=== PATIENT | male | born 1950 | race Caucasian/White ===

== ENCOUNTER → 2021-07-14 00:01 | Outpatient (BNVA) | payer MEDICARE, OTHER, SELFPAY | PROVIDERS: PCP Registered Nurse; Visit Provider Podiatrist Foot & Ankle Surgery | DX: T14.8XXA Other injury of unspecified body region, initial encounter (principal); X58.XXXA Exposure to other specified factors, initial encounter | CPT/HCPCS: 87070; 87075; 87205 ==

== ENCOUNTER 2021-08-08 06:55 | Emergency (ER) | payer MEDICARE, OTHER, SELFPAY ==
[2021-08-08 07:02] VITALS: BP 171/92; PULSE 67; RESP 15; TEMP 36.3; O2SAT 96; BMI 28.5
--- NOTE | 2021-08-08 07:17 | W.ED.EXTPRO ---
Documented by User: DONN Shaikh 08/08/21 07:21 HPI - Extremity Problem General: Chief complaint: Extremity Injury, Lower Stated complaint: Wound on Right Foot Time Seen by Provider: 08/08/21 07:08 History of Present Illness: HPI Narrative: Patient recently treated by Dr. Díaz for puncture wound infection. Patient did not improve with antibiotics without any concerns. Patient got a new pair of boots on July 21 and then noticed a blister the last couple days between his great toe and the next toe. This blister is located above 40 had a puncture wound. Blister broke open last night and drained clear fluid. He is concerned about whether it might be infected. Patient has no feeling due to neuropathy. MD Complaint: other (Blister right foot) Onset (ago): day(s) Location: right and lower extremity Severity scale (1-10): 1 Associated symptoms: Reports no associated symptoms; Deny chest pain, fever(s) or rash Review of Systems Const: Denies: fever(s), chills or body aches Eyes: Denies: change in vision or blurry vision ENMT: Denies: throat pain or nasal congestion Card: Denies: chest pain or dyspnea on exertion Resp: Denies: dyspnea, productive cough or non-productive cough GI: Denies: abdominal pain, nausea or vomiting : Denies: difficulty urinating Musc: Denies: extremity pain Skin/Breast: Reports: other (Blister on right foot between first and second toe); Denies: rash, erythema, skin pain, skin tenderness or skin swelling Neuro: Denies: headache(s) Psych: Denies: anxiety or depression Lakhwinder/Lymph: Denies: easy bruising PFSH ED PFSH: Social History Second hand smoke exposure: No Smoking risk assessment/counseling performed?: No Alcohol intake: never Desire information about alcohol rehabilitation?: No Counseling given: No Desire information about substance/drug rehabilitation?: No Counseling given: No Physical Exam Const: COMMON NORMALS: no acute distress GENERAL APPEARANCE: cooperative Psych: COMMON NORMALS: mental status grossly normal and speech normal SPEECH: Yes normal speech Skin: OTHER: Patient has blisters broke open between the first and second toe. This blister is approximately 1-1/2 inches above where the puncture wound was. No erythema redness pain or drainage noted. Course Vital Signs: Vital signs: Vital Signs Temperature 97.3 F L 08/08/21 07:02 Pulse Rate 67 08/08/21 07:02 Respiratory Rate 15 08/08/21 07:02 Blood Pressure 171/92 08/08/21 07:02 Pulse Oximetry 96 08/08/21 07:02 MDM - Extremity (Nontraumatic) MDM Narrative: Medical decision making narrative: Patient with blister between first second toe. Patient was encouraged to not wear his new boot for a while decreased activity this weekend and follow-up Dr. Díaz next week. Will take antibiotics prophylactically. Discharge Plan Discharge Patient Disposition: Home Clinical Impression: Blister Condition: Stable Prescriptions: New clindamycin HCl 300 mg capsule 300 mg PO Q8H 7 Days Qty: 21 RF: 0 Cipro 500 mg tablet 500 mg PO BID Qty: 14 RF: 0 No Action pravastatin 10 mg tablet 10 mg PO DAILY RF: 0 isosorbide dinitrate 30 mg tablet 30 mg PO BID RF: 0 aspirin [Adult Aspirin Regimen] 81 mg tablet,delayed release (DR/EC) 81 mg PO DAILY RF: 0 levothyroxine 150 mcg tablet 150 mcg PO DAILY RF: 0 allopurinol 100 mg tablet 100 mg PO DAILY RF: 0 tramadol 50 mg tablet 50 mg PO DAILY RF: 0 Tylenol Extra Strength 500 mg powder in packet 500 mg PO Q6H PRNRF: 0 Discharge Orders: Discharge ED (Routine); Ordered 08/08/21 Ordered By: Umberto Lawrence Referrals: Karla Fuentes FNP [Primary Care Provider] - Discharge Diet: Usual diet Discharge Activity: Resume usual activity Activity Restrictions/Additional Instructions: Follow-up with medical provider as directed. Take medications as prescribed. Return to the ER or your medical provider if condition worsens. Please read and understand discharge instructions. If any questions ask please. Apply petroleum jelly or Vaseline over the wound bed. Make sure they put gauze or cotton balls between the told to keep pressure off. Do not wear your new pair boots for the next week. Watch for signs symptoms of infection. Follow-up with Dr. Díaz in the next week to 2. Coding Level of Care Code ED Machine Builder for Chg Fwd Exam Expanded Problem Focused Documented by User: Andrew Fleming MD 08/13/21 23:10 HPI - Extremity Problem General: Chief complaint: Extremity Injury, Lower Stated complaint: Wound on Right Foot Time Seen by Provider: 08/08/21 07:08 PFSH ED PFSH: Social History Second hand smoke exposure: No Smoking risk assessment/counseling performed?: No Alcohol intake: never Desire information about alcohol rehabilitation?: No Counseling given: No Desire information about substance/drug rehabilitation?: No Counseling given: No Course Vital Signs: Vital signs: Vital Signs Temperature 97.3 F L 08/08/21 07:02 Pulse Rate 67 08/08/21 07:02 Respiratory Rate 15 08/08/21 07:02 Blood Pressure 171/92 08/08/21 07:02 Pulse Oximetry 96 08/08/21 07:02 MDM - Extremity (Nontraumatic) MDM Narrative: Medical decision making narrative: I have reviewed this documentation by Umberto Lawrence [employer]. Andrew Fleming MD Emergency Medicine Discharge Plan Discharge Patient Disposition: Home Clinical Impression: Blister Condition: Stable Prescriptions: New clindamycin HCl 300 mg capsule 300 mg PO Q8H 7 Days Qty: 21 RF: 0 Cipro 500 mg tablet 500 mg PO BID Qty: 14 RF: 0 No Action pravastatin 10 mg tablet 10 mg PO DAILY RF: 0 isosorbide dinitrate 30 mg tablet 30 mg PO BID RF: 0 aspirin [Adult Aspirin Regimen] 81 mg tablet,delayed release (DR/EC) 81 mg PO DAILY RF: 0 levothyroxine 150 mcg tablet 150 mcg PO DAILY RF: 0 allopurinol 100 mg tablet 100 mg PO DAILY RF: 0 tramadol 50 mg tablet 50 mg PO DAILY RF: 0 Tylenol Extra Strength 500 mg powder in packet 500 mg PO Q6H PRNRF: 0 Discharge Orders: Discharge ED (Routine); Ordered 08/08/21 Ordered By: Umberto Lawrence Referrals: Karla Fuentes FNP [Primary Care Provider] - Discharge Diet: Usual diet Discharge Activity: Resume usual activity Activity Restrictions/Additional Instructions: Follow-up with medical provider as directed. Take medications as prescribed. Return to the ER or your medical provider if condition worsens. Please read and understand discharge instructions. If any questions ask please. Apply petroleum jelly or Vaseline over the wound bed. Make sure they put gauze or cotton balls between the told to keep pressure off. Do not wear your new pair boots for the next week. Watch for signs symptoms of infection. Follow-up with Dr. Díaz in the next week to 2. Coding Level of Care Code ED Machine Builder for Galen Fwd Exam Expanded Problem Focused
== END 2021-08-08 08:10 | disposition home or self-care (01) ==
PROVIDERS: Emergency Provider Nurse Practitioner Family; PCP Registered Nurse
DX: S90.821A Blister (nonthermal), right foot, initial encounter (principal); X58.XXXA Exposure to other specified factors, initial encounter; Z79.82 Long term (current) use of aspirin
CPT/HCPCS: 99282; 99291

== ENCOUNTER 2021-08-21 09:41 | Outpatient (CLI) | payer MEDICARE, OTHER, SELFPAY | END 2021-08-21 09:42 | disposition home or self-care (01) | LOC: SPT 09:42 | PROVIDERS: PCP Registered Nurse; Visit Provider Podiatrist Foot & Ankle Surgery | DX: Z46.89 Encounter for fitting and adjustment of other specified devices (principal); S91.331A Puncture wound without foreign body, right foot, initial encounter; G62.9 Polyneuropathy, unspecified; X58.XXXA Exposure to other specified factors, initial encounter | CPT/HCPCS: 97760; L4361 ==

== ENCOUNTER → 2022-08-08 12:16 | Outpatient (BNVA) | payer MEDICARE, SELFPAY | PROVIDERS: PCP Registered Nurse; Visit Provider Nurse Practitioner | DX: R09.89 Other specified symptoms and signs involving the circulatory and respiratory systems (principal); Z20.822 Contact with and (suspected) exposure to COVID-19 | CPT/HCPCS: 87426 ==

== ENCOUNTER → 2023-01-18 08:07 | Outpatient (BNVA) | payer MEDICARE, OTHER, SELFPAY | PROVIDERS: PCP Registered Nurse; Referring Provider Nurse Practitioner Family; Visit Provider Nurse Practitioner Family | DX: L57.0 Actinic keratosis (principal); D69.2 Other nonthrombocytopenic purpura; S60.012A Contusion of left thumb without damage to nail, initial encounter; X58.XXXA Exposure to other specified factors, initial encounter; D22.5 Melanocytic nevi of trunk; L81.4 Other melanin hyperpigmentation; Z71.89 Other specified counseling; L85.3 Xerosis cutis; L57.8 Other skin changes due to chronic exposure to nonionizing radiation | CPT/HCPCS: 17000; 17003; 99203 ==

== ENCOUNTER 2024-12-31 19:31 | Emergency (ER) | payer MEDICARE, OTHER, SELFPAY ==
[2024-12-31 19:33] VITALS: BP 149/94; PULSE 94; RESP 18; TEMP 37.1; O2SAT 97
--- NOTE | 2024-12-31 19:42 | XRR_ITS ---
PROCEDURE INFORMATION: Exam: XR Left Ribs with PA Chest Exam date and time: 12/31/2024 8:05 PM Age: 74 years old Clinical indication: Injury or trauma; Fall; Rib area, left side; Blunt trauma; Prior surgery; Surgery date: 6+ months; Surgery type: Open heart aortic valve TECHNIQUE: Imaging protocol: Radiologic exam of the left ribs with PA chest. Views: 3 views COMPARISON: No relevant prior studies available. FINDINGS: Lungs: Low lung volumes with basilar atelectasis. Mild interstitial prominence is likely chronic. No pulmonary consolidation. Pleural spaces: No pleural effusion or pneumothorax. Heart/Mediastinum: Mild cardiomegaly. Vasculature: Artificial aortic valve is present. Bones/joints: The patient is status post sternotomy. Questionable nondisplaced left posterior 6th rib fracture seen on only one view, likely artifactual. No definitive plain film evidence of displaced rib fracture. Degenerative change of the shoulders. XR/XR ribs LT mn 3V w CXR1V [id number] IMPRESSION: 1. Questionable nondisplaced left posterior 6th rib fracture seen on only one view, likely artifactual. Correlate with physical exam. 2. No definitive plain film evidence of displaced rib fracture. 3. No acute cardiopulmonary disease.
--- NOTE | 2024-12-31 19:42 | XRR_ITS ---
PROCEDURE INFORMATION: Exam: XR Right Shoulder Exam date and time: 12/31/2024 8:08 PM Age: 74 years old Clinical indication: Injury or trauma; Fall; Blunt trauma (contusions or hematomas); Shoulder; Right TECHNIQUE: Imaging protocol: Radiologic exam of the right shoulder. Views: 2 or more views. COMPARISON: No relevant prior studies available. FINDINGS: Bones/joints: Mild osseous demineralization. No evidence of acute fracture or dislocation. Iyxkytcl-uv-nrqsvs degenerative changes of the right shoulder involving both the glenohumeral and acromioclavicular joints. Small loose body in the right axillary pouch. Soft tissues: The soft tissues are within normal limits. XR/XR shoulder RT min 2V* [id number] IMPRESSION: No evidence of acute fracture or dislocation.
--- NOTE | 2024-12-31 19:42 | XRR_ITS ---
PROCEDURE INFORMATION: Exam: XR Right Knee Exam date and time: 12/31/2024 8:11 PM Age: 74 years old Clinical indication: Injury or trauma; Fall; Blunt trauma; Knee; Right TECHNIQUE: Imaging protocol: Radiologic exam of the right knee. Views: 3 views. COMPARISON: CT Low Extremity w RIGHT [id number] 12/28/2018 10:43 AM FINDINGS: Bones/joints: Mild osseous demineralization. Total right knee arthroplasty in anatomic alignment. No evidence of acute fracture or dislocation. Suggested moderate joint effusion. Soft tissues: Normal. XR/XR knee RT 3V* [id number] IMPRESSION: 1. No evidence of acute fracture or dislocation. 2. Suggested moderate joint effusion.
--- NOTE | 2024-12-31 19:45 | CTR_ITS ---
PROCEDURE INFORMATION: Exam: CT Head Without Contrast Exam date and time: 12/31/2024 8:22 PM Age: 74 years old Clinical indication: Injury or trauma; Fall; Blunt trauma (contusions or hematomas); Consciousness not specified; Additional info: [place] TECHNIQUE: Imaging protocol: Computed tomography of the head without contrast. Radiation optimization: All CT scans at this facility use at least one of these dose optimization techniques: automated exposure control; mA and/or kV adjustment per patient size (includes targeted exams where dose is matched to clinical indication); or iterative reconstruction. COMPARISON: CT facial bones wo con* [id number] 12/31/2024 8:22 PM RADIATION DOSE METRICS: Total DLP (mGy-cm): 1159.8 FINDINGS: Brain: There is mild cerebral atrophy. There are mild deep white matter microangiopathic ischemic changes. No acute hemorrhage is identified. No mass or mass effect is identified. Chronic appearing hypodensities in the bilateral basal ganglia, the symmetry of which suggests prominent perivascular spaces. Cerebral ventricles: The ventricles are prominent secondary to atrophy. Paranasal sinuses: Lioi-uo-ieyqfsym right maxillary mucosal thickening. Mild right anterior ethmoidal mucosal disease. Paranasal sinuses are otherwise clear. Mastoid air cells: The mastoid air cells are clear. Bones: No acute osseous abnormalities are seen. Soft tissues: The soft tissues are within normal limits. CT/CT head wo con* [id number] IMPRESSION: No acute intracranial pathology.
--- NOTE | 2024-12-31 19:47 | CTR_ITS ---
PROCEDURE INFORMATION: Exam: CT Maxillofacial Without Contrast; Mandible Exam date and time: 12/31/2024 8:22 PM Age: 74 years old Clinical indication: Injury or trauma; Fall; Blunt trauma (contusions or hematomas); Jaw; Not specified TECHNIQUE: Imaging protocol: Computed tomography maxillofacial without contrast. Exam focused on the mandible. Radiation optimization: All CT scans at this facility use at least one of these dose optimization techniques: automated exposure control; mA and/or kV adjustment per patient size (includes targeted exams where dose is matched to clinical indication); or iterative reconstruction. COMPARISON: CT head wo con* [id number] 12/31/2024 8:22 PM RADIATION DOSE METRICS: Total DLP (mGy-cm): 686.2 FINDINGS: Paranasal sinuses: Moderate opacification of the right maxillary sinus with calcification suggesting chronicity. Mild right anterior ethmoidal mucosal disease. Orbital cavities: No evidence of orbital fracture. Globes appear intact by CT evaluation. The retro-orbital fat is within limits. Bones: Non fusion of the anterior thyroid cartilage which is offset which appears well peripherally calcified without evidence acute fracture. Moderately displaced fracture of the head of the right condylar process of the mandible. No other evidence of facial fracture. Soft tissues: Soft tissue swelling of the right masseter musculature related to hematoma from fracture. Mild fpvq-kooakdw-omud-right submental soft tissue swelling. Teeth: Multifocal dental disease with several periapical cysts and extensive dental amalgam which limits evaluation. Pharynx: Moderate calcifications in the right tonsil. CT/CT facial bones wo con* [id number] IMPRESSION: Moderately displaced fracture of the head of the right condylar process of the mandible.
--- NOTE | 2024-12-31 19:47 | W.ED.FALL ---
HPI - Fall General: Chief Complaint: Fall Stated Complaint: Fell Forward Time Seen by Provider: 12/31/24 19:34 Source: patient Mode of arrival: ambulatory Limitations: no limitations History of Present Illness: 74-year-old male states he was loading a calf into a trailer states the calf knocked him down he does not believe he had stepped on but states it fell forward he states that he has pain in his right knee has had a knee replacement also has pain in his left ribs right shoulder. States most pain is in his knee and shoulder states he also hit his head and face has some pain over his right jaw denies any loss conscious has a mild headache. Denies any neck pain Associated symptoms-after fall: Reports chest pain and headache(s); Denies abdominal pain or neck pain Related Data Home Medications ?Medication ?Instructions ?Recorded ?Confirmed acetaminophen 500 mg oral powder 500 mg PO Q6H PRN 07/14/21 08/08/22 packet (Tylenol Extra Strength) allopurinol 100 mg tablet 100 mg PO DAILY 07/14/21 08/08/22 aspirin 81 mg tablet,delayed 81 mg PO DAILY 07/14/21 08/08/22 release (Adult Aspirin Regimen) isosorbide dinitrate 30 mg tablet 30 mg PO BID 07/14/21 08/08/22 levothyroxine 150 mcg tablet 150 mcg PO DAILY 07/14/21 08/08/22 pravastatin 10 mg tablet 10 mg PO DAILY 07/14/21 08/08/22 tramadol 50 mg tablet 50 mg PO DAILY 07/14/21 08/08/22 Previous Rx's ?Medication ?Instructions ?Recorded Cam Boot to the right #1 ea 08/21/21 mupirocin 2 % topical ointment 1 applic topical BID #15 grams 08/21/21 nirmatrelvir 300 mg (150 mg See Rx Instructions PO .COMPLEX 08/08/22 x2)-ritonavir 100 mg tablet,dose #30 ea pack (Paxlovid) hydrocodone 5 mg-acetaminophen 325 1 tab PO Q6H PRN pain #14 tabs 12/31/24 mg tablet Allergies Allergy/AdvReac Type Severity Reaction Status Date / Time Sulfa (Sulfonamide Allergy Mild Rash Verified 12/31/24 19:36 Antibiotics) Review of Systems Const: Denies: fever(s), chills, body aches or change in appetite ENMT: Denies: throat pain or dental pain Card: Reports: chest pain Resp: Denies: dyspnea GI: Denies: abdominal pain, nausea, vomiting or diarrhea Musc: Reports: extremity pain; Denies: neck pain or back pain Skin/Breast: Denies: rash Neuro: Reports: headache(s) PFS ED PFSH: Social History Second hand smoke exposure: No Alcohol intake: never Substance/Drug Use: never Physical Exam Const: COMMON NORMALS: patient oriented x3 HENMT: COMMON NORMALS: normocephalic HEAD & SCALP: normocephalic OTHER: Abrasion noted to lower lip contusion left side of face Eye: COMMON NORMALS: Equal, round and reactive pupils present and EOMs intact bilaterally PUPIL: Yes Equal, round and reactive pupils present Neck/C-Spine: COMMON NORMALS: full ROM and supple CERVICAL SPINE: Yes cervical ROM normal and No Cervical spine tenderness Chest: COMMONS NORMALS: normal inspection of the chest OTHER: Mild tenderness to left lower ribs Resp: COMMON NORMALS: normal respiratory effort, No retractions, No use of accessory muscles and clear to auscultation bilaterally AUSCULTATION: clear to auscultation bilaterally Cardio: COMMON NORMALS: regular rate, regular rhythm and No murmurs present (Cardio) RATE: regular rate RHYTHM: regular rhythm GI: COMMON NORMALS: Normal to inspection, nondistended, normoactive bowel sounds present, Soft to palpation, non-tender and no masses PALPATION: Yes Soft to palpation Extremity: NARRATIVE EXTREMITY EXAM: Tenderness over right shoulder and right knee no obvious deformities Neuro: COMMON NORMALS: patient oriented x3, moves all extremities and no focal motor deficits Psych: COMMON NORMALS: mental status grossly normal, Normal thought process present and cooperative THOUGHT PROCESS: Normal thought process present Skin: COMMON NORMALS: no rashes or lesions noted and no wounds GENERAL SKIN EXAM: no rashes or lesions noted Course Vital Signs: Vital signs: Vital Signs Temperature 98.8 F 12/31/24 19:33 Pulse Rate 81 12/31/24 20:53 Respiratory Rate 16 12/31/24 20:53 Blood Pressure 140/90 12/31/24 20:53 Pulse Oximetry 96 12/31/24 20:53 Oxygen Delivery Me thod Room Air 12/31/24 20:53 MDM - Fall Medical Decision Making Patient presents to the right mandible fracture: Knee sprain after being knocked over by a cow other imaging shows no acute abnormalities possible sixth rib fracture he is very minimally tender on exam no signs of pneumothorax will get him follow-up with [facility] along with orthopedics he is to weight-bear as tolerated and eat a soft I will prescribe pain meds Medical Records I reviewed the patient's medical records. Lab Data Radiology Impressions Knee X-Ray 12/31/24 19:42 IMPRESSION: 1. No evidence of acute fracture or dislocation. 2. Suggested moderate joint effusion. Ribs X-Ray 12/31/24 19:42 IMPRESSION: 1. Questionable nondisplaced left posterior 6th rib fracture seen on only one view, likely artifactual. Correlate with physical exam. 2. No definitive plain film evidence of displaced rib fracture. 3. No acute cardiopulmonary disease. Shoulder X-Ray 12/31/24 19:42 IMPRESSION: No evidence of acute fracture or dislocation. Head CT 12/31/24 19:45 IMPRESSION: No acute intracranial pathology. Face CT 12/31/24 19:47 IMPRESSION: Moderately displaced fracture of the head of the right condylar process of the mandible. All radiology interpretation(s) finalized by discharge Discharge Plan Discharge Patient Disposition: Home Clinical Impression: Right knee sprain Fracture of mandible Qualifiers: Encounter type: initial encounter Fracture type: closed Laterality: right Condition: Stable Prescriptions: New hydrocodone-acetaminophen 5-325 mg tablet 1 tab PO Q6H PRN (Reason: pain) Qty: 14 0RF No Action mupirocin 2 % ointment 1 applic topical BID Qty: 15 0RF (DME) Cam Boot to the right See Rx Instructions .Route .MEDSUPPLY Qty: 1 0RF Rx Instructions: As directed pravastatin 10 mg tablet 10 mg PO DAILY isosorbide dinitrate 30 mg tablet 30 mg PO BID Rx Instructions: allow nitrate-free interval of 12-14 hrs per 24-hr period aspirin [Adult Aspirin Regimen] 81 mg tablet,delayed release (DR/EC) 81 mg PO DAILY levothyroxine 150 mcg tablet 150 mcg PO DAILY allopurinol 100 mg tablet 100 mg PO DAILY tramadol 50 mg tablet 50 mg PO DAILY Tylenol Extra Strength 500 mg powder in packet 500 mg PO Q6H PRN Paxlovid 300 mg (150 mg x 2)-100 mg tablets,dose pack See Rx Instructions PO .COMPLEX Qty: 30 0RF Rx Instructions: take TWO 150 mg tablets of nirmatrelvir with ONE 100 mg tablet of ritonavir twice daily for 5 days PO Discharge Orders: Discharge ED (Routine); Ordered 12/31/24 Ordered By: Daysi Tellez Referrals: Kelton Fitzpatrick DDS [Occupational Therapist] - 1-3 days Radha Clark FNP [Primary Care Provider] - Discharge Diet: Soft Mechanical Discharge Activity: Limit activity as instructed Patient Instructions: Knee Sprain (ED), Jaw Fracture in Adults (ED), Opioid Safety Print Language: Gabonese Coding Level of Care Code ED Wood Machinist Apprentice for Galen Cee
--- NOTE | 2024-12-31 19:48 | ECG_ITS ---
[email or web address] Date: 2024-12-31 Pat Name: Osmin Hanna Department: Room: Gender: Male Booker: : 1950 Requested By: Daysi Tellez Order Number: [id number] Beth MD: Umesh Kamara M.D. Measurements Intervals [place] Rate: 83 P: 39 CT: 231 QRS: -56 QRSD: 120 T: 78 QT: 356 QTc: 418 Interpretive Statements SINUS RHYTHM WITH FIRST DEGREE AV BLOCK LEFT AXIS DEVIATION [QRS AXIS < -30] POSSIBLE RIGHT VENTRICULAR CONDUCTION DELAY [RSR (QR) IN V1/V2] LEFT VENTRICULAR HYPERTROPHY AND ST-T CHANGE [VOLTAGE CRITERIA PLUS ST/T ABNORMALITY] POSSIBLE ANTEROSEPTAL MYOCARDIAL INFARCTION , OF INDETERMINATE AGE [30 ms Q WAVE IN V1-V4] No previous ECG available for comparison Electronically Signed On 01-02-2025 21:53:18 CDT by Umesh Kamara M.D. [email or web address]
[2024-12-31] MEDS: HYDROcodone-acetaminophen 5-325 mg Tablet 1 TAB PO (19:55)
[2024-12-31 19:57] VITALS: BP 139/92; PULSE 89; RESP 16; O2SAT 96
[2024-12-31 20:53] VITALS: BP 140/90; PULSE 81; RESP 16; O2SAT 96
[2024-12-31 22:30] VITALS: BP 121/76; PULSE 76; RESP 16; O2SAT 95
--- NOTE | 2024-12-31 22:32 | PC.NURSE ---
PT DECLINED CRUTCHES AND TRAINING, HE STATED, MARGIE GOT SOME AT HOME AND I KNOW HOW TO USE THEM.
--- NOTE | 2025-01-02 07:29 | DCPLANNER ---
Message sent to Ortho for follow up- patient presents to the right mandible fracture: Knee sprain after being knocked over by a cow other imaging shows no acute abnormalities possible sixth rib fracture he is very minimally tender on exam no signs of pneumothorax will get him follow-up with [facility] along with orthopedics he is to weight-bear as tolerated and eat a soft I will prescribe pain meds
== END 2024-12-31 22:12 | disposition home or self-care (01) ==
PROVIDERS: Emergency Provider Emergency Medicine; PCP Nurse Practitioner Family
DX: S83.91XA Sprain of unspecified site of right knee, initial encounter (principal); S02.611A Fracture of condylar process of right mandible, initial encounter for closed fracture; Z79.82 Long term (current) use of aspirin; W19.XXXA Unspecified fall, initial encounter
CPT/HCPCS: 70450; 70486; 71101; 73030; 73562; 93005; 99284; J9999

== ENCOUNTER → 2025-01-15 15:06 | Outpatient (BNVA) | payer MEDICARE, OTHER, SELFPAY | PROVIDERS: PCP Nurse Practitioner Family; Visit Provider Orthopaedic Surgery | DX: M25.569 Pain in unspecified knee (principal) | CPT/HCPCS: 73560; 73565; 99203 ==

== ENCOUNTER 2025-05-08 15:20 | Oncology outpatient (recurring) (ONCR) | payer MEDICARE, OTHER, SELFPAY ==
[2025-05-08 17:14] LABS: Hematocrit 43.8 % (37-53); Hemoglobin 14.80 g/dL (11.27-16.99); Mean Corpuscular HGB Conc 33.8 g/dL (30-55); Mean Corpuscular Hemoglobin 30.9 pg (27-33); Mean Corpuscular Volume 91.4 fl (82-101); Nucleated Red Blood Cells % 0 %; Platelet Count 153 10^3/cmm (157-399); Red Blood Count 4.79 10^6/uL (3.85-5.65); White Blood Count 7.08 10^3/uL (3.29-11.43)
[2025-05-08 18:04] LABS: Alanine Aminotransferase 15 U/L (0-41); Albumin Level 4.0 g/dL (3.5-5.2); Alkaline Phosphatase 118 U/L (40-130); Anion Gap 16.2 (5-19); Aspartate Amino Transferase 20 U/L (0-40); Blood Urea Nitrogen 22 mg/dL (8-23); Calcium 9.2 mg/dL (8.5-10.5); Carbon Dioxide 24 mmol/L (22-29); Chloride 104 mmol/L (98-107); Creatinine Clr Calc Pharmacy 69.9321; Ferritin 192 ng/mL (30-400); Globulin 2.8 g/dL (1.3-4.6); Glucose 85 mg/dL (65-115); Iron 66 ug/dL (59-158); Osmolality Calculated 293 mOsm/kg (285-295); Potassium 4.2 mmol/L (3.5-5.1); Sodium 140 mmol/L (136-145); Total Iron Binding Capacity 245 mcg/dl; Total Protein 6.8 g/dL (6.6-8.7); Unsaturated Iron Binding 179 ug/dL (112-347)
== END 2025-05-19 23:59 | disposition home or self-care (01) ==
LOC: ONCMED 15:20
PROVIDERS: PCP Nurse Practitioner Family; Visit Provider Internal Medicine
DX: E83.10 Disorder of iron metabolism, unspecified (principal); R79.9 Abnormal finding of blood chemistry, unspecified
CPT/HCPCS: 36415; 80053; 81256; 82728; 83540; 83550; 83615; 85025; 86140; 99204

== ENCOUNTER 2025-05-29 10:23 | Oncology outpatient (recurring) (ONCR) | payer MEDICARE, OTHER, SELFPAY | END 2025-06-18 23:59 | disposition home or self-care (01) | PROVIDERS: PCP Nurse Practitioner Family; Visit Provider Internal Medicine | DX: E83.10 Disorder of iron metabolism, unspecified (principal) | CPT/HCPCS: 99213 ==